=== PATIENT | female | born 1955 | race Caucasian/White ===

== ENCOUNTER → 2021-11-05 | Outpatient (CLI) | payer MEDICARE ==
[2021-11-05 09:29] LABS: HEMOGLOBIN 12.7 gm/dl (12.3-15.3); RED BLOOD COUNT 4.89 M/UL (4.00-5.10); WHITE BLOOD COUNT 8.4 K/UL (4.5-11.0)
[2021-11-05 09:48] LABS: BUN/CREATININE RATIO 18 (0-10)
== END ==
LOC: LAB 08:28
PROVIDERS: Nurse Practitioner Family
DX: I10 Essential (primary) hypertension (principal); R00.2 Palpitations; R73.03 Prediabetes
CPT/HCPCS: 36415; 80053; 80061; 82570; 84156; 84439; 84443; 85025

== ENCOUNTER → 2021-11-10 | Outpatient (CLI) | payer MEDICARE | LOC: MAMO 10:51 | DX: Z12.31 Encounter for screening mammogram for malignant neoplasm of breast (principal) | CPT/HCPCS: 77063; 77067 ==

== ENCOUNTER → 2021-11-17 | Outpatient (CLI) | payer MEDICARE ==
[2021-11-17 07:10] LABS: HEMOGLOBIN 12.2 gm/dl (12.3-15.3); RED BLOOD COUNT 4.76 M/UL (4.00-5.10); WHITE BLOOD COUNT 8.7 K/UL (4.5-11.0)
[2021-11-17 07:43] LABS: BUN/CREATININE RATIO 18 (0-10)
== END ==
LOC: LAB 06:52
PROVIDERS: Nurse Practitioner Family
DX: E87.6 Hypokalemia (principal); D75.839 Thrombocytosis, unspecified
CPT/HCPCS: 36415; 80053; 85025

== ENCOUNTER → 2021-12-16 | Outpatient (CLI) | payer MEDICARE | LOC: HEART 5 07:30 | DX: R00.2 Palpitations (principal) ==

== ENCOUNTER → 2021-12-21 | Outpatient (CLI) | payer MEDICARE ==
[2021-12-21 14:20] LABS: BUN/CREATININE RATIO 25 (0-10)
== END ==
LOC: LAB 13:24
PROVIDERS: Nurse Practitioner Family
DX: E87.6 Hypokalemia (principal)
CPT/HCPCS: 36415; 80048